=== PATIENT | female | born 1985 | race Caucasian/White ===

== ENCOUNTER 2021-02-19 02:37 | Inpatient (IN) | payer OTHER ==
[2021-02-19] MEDS ORDERED: ONDANSETRON 4 MG/2 ML VIAL IVPUSH ONE ×2 (03:01→04:04)
[2021-02-19] MEDS ORDERED: FAMOTIDINE 20 MG/50 ML IVPB 20 MG/50 ML MG IVPB ONE ×2 (03:01→04:05)
[2021-02-19] MEDS ORDERED: morphine SULFATE 4 MG/ML VIAL IVPUSH ONE (03:01)
[2021-02-19] MEDS ORDERED: SODIUM CHLORIDE 0.9% 500 ML INFUS.BAG IV ONE ×2 (03:01→04:05)
[2021-02-19] MEDS ORDERED: morphine CARPU-JECT 4 MG/1 ML DISP.SYRIN IVPUSH ONE (03:01)
[2021-02-19] MEDS ORDERED: morphine SULFATE 4 MG/ML VIAL ONE ×2 (03:06→04:05)
[2021-02-19 03:11] LABS: BASO % 1.5 % (0-2.0); EOS % 1.6 % (0-4.5); HEMATOCRIT 37.2 % (32.4-45.2); LYMPH % 50.6 % (8-40); MCHC 34.8 g/dl (32.0-36.0); MEAN CELL VOLUME 89.2 fl (80-96); MONO % 7.6 % (3.8-10.2); NEUT % 38.7 % (42.8-82.8); PLATELET COUNT 258 10^3/uL (134-434); RBC 4.18 M/mm3 (3.60-5.2); RDW 13.1 % (11.6-15.6); WHITE BLOOD COUNT 6.3 K/mm3 (4.0-10.0)
[2021-02-19 03:41] LABS: INR 0.93 (0.83-1.09); PROTHROMBIN TIME (PATIENT) 11.3 SEC (9.7-13.0)
[2021-02-19 03:43] LABS: ACTIVATED PTT 30.2 SECONDS (25.2-36.5)
[2021-02-19 03:45] LABS: CHLORIDE 107 mmol/L (98-107); SODIUM 140 mmol/L (136-145)
[2021-02-19 03:47] LABS: CALCIUM 8.7 mg/dL (8.5-10.1)
[2021-02-19 03:48] LABS: ALBUMIN 3.8 g/dl (3.4-5.0); ANION GAP 9 MMOL/L (8-16); BLOOD UREA NITROGEN 11.7 mg/dL (7-18); CO2 24 mmol/L (21-32); GLUCOSE,RANDOM 116 mg/dL (74-106); LIPASE 111 U/L (73-393)
[2021-02-19 03:51] LABS: CREATININE 0.9 mg/dL (0.55-1.3); SGOT/AST 29 U/L (15-37); SGPT/ALT 82 U/L (13-61)
[2021-02-19 03:52] LABS: BILIRUBIN,TOTAL 0.2 mg/dL (0.2-1)
[2021-02-19 03:53] LABS: TOT PROT 7.3 g/dl (6.4-8.2)
[2021-02-19 03:54] LABS: ALK PHOS 77 U/L (45-117)
[2021-02-19] MEDS ORDERED: HYDROmorphone HCL CARPU-JECT 2 MG/1 ML DISP.SYRIN IVPUSH ONE (04:03)
[2021-02-19] MEDS ORDERED: ONDANSETRON 4 MG/2 ML VIAL ONE (04:07)
[2021-02-19 04:36] LABS: LACTIC ACID 2.5 mmol/L (0.4-2.0)
[2021-02-19 05:40] LABS: PH,URINE 8.5 (5.0-8.0); URINE APPEARANCE CLEAR; URINE BILIRUBIN NEGATIVE (NEGATIVE); URINE COLOR YELLOW; URINE GLUCOSE (UA) NEGATIVE (NEGATIVE); URINE KETONE NEGATIVE (NEGATIVE); URINE LEUK ESTERASE NEGATIVE (NEGATIVE); URINE NITRITE NEGATIVE (NEGATIVE); URINE PROTEIN NEGATIVE (NEGATIVE); URINE UROBILINOGEN 0.2 mg/dL (0.2-1.0)
[2021-02-19 05:42] LABS: HCG,QUALITATIVE URINE Negative
[2021-02-19] MEDS ORDERED: PIPERACILLIN/TAZOB 3.375 GM 3.375 GM in DEXTROSE 5%-WATER - 50 ML IVPB ONE (06:12)
[2021-02-19] MEDS ORDERED: SODIUM CHLORIDE 0.9% 1000 ML INFUS.BAG IV ONE (06:20)
[2021-02-19] MEDS ORDERED: PIPERACILLIN/TAZOB 3.375 GM 3.375 GM/50 ML BAG IVPB ONE (06:32)
[2021-02-19] MEDS ORDERED: MORPHINE SULFATE 2 MG/ML VIAL IVPUSH PRN (08:29)
[2021-02-19] MEDS ORDERED: SODIUM CHLORIDE 1,000 ML IV SCH (08:30)
[2021-02-19] MEDS ORDERED: PIPERACILLIN/TAZOB 3.375 GM 3.375 GM in DEXTROSE 5%-WATER - 50 ML IVPB SCH (10:30)
[2021-02-19] MEDS ORDERED: LACTATED RINGERS SOLUTION 1,000 ML/1,000 ML INFUS.BAG IV SCH (11:15)
[2021-02-19] MEDS ORDERED: AMPICILLIN NA/SULBACTAM NA 1.5 GM in SODIUM CHLORIDE 100 ML IVPB SCH ×2 (13:42→14:01)
[2021-02-19] MEDS ORDERED: PIPERACILLIN/TAZOB 3.375 GM 3.375 GM in DEXTROSE 5%-WATER 100 ML IVPB SCH (15:00)
[2021-02-19] MEDS ORDERED: SODIUM CHLORIDE 100 ML IVPB ONE ×2 (15:02→20:10)
[2021-02-19] MEDS ORDERED: AMPICILLIN NA/SULBACTAM NA 1.5 GM VIAL ONE ×2 (15:02→20:10)
[2021-02-19] MEDS: AMPICILLIN NA/SULBACTAM NA 1.5 GM in SODIUM CHLORIDE 100 ML IVPB SCH ×2 (15:13→20:16)
[2021-02-19 15:15] LABS: BILIRUBIN,DIRECT 0.1 mg/dL (0.0-0.2)
[2021-02-19 17:31] LABS: BASO % 0.3 % (0-2.0); EOS % 0.6 % (0-4.5); HEMATOCRIT 33.3 % (32.4-45.2); HEMOGLOBIN 11.4 GM/dL (10.7-15.3); LYMPH % 30.2 % (8-40); MCHC 34.4 g/dl (32.0-36.0); MEAN CELL VOLUME 90.1 fl (80-96); MEAN PLT VOLUME 8.5 fl (7.5-11.1); MONO % 6.1 % (3.8-10.2); NEUT % 62.8 % (42.8-82.8); PLATELET COUNT 228 10^3/uL (134-434); RDW 13.5 % (11.6-15.6)
[2021-02-19] MEDS: D5-1/2NS+10 MEQ KCL - 10 MEQ/1,000 ML INFUS.BAG IV SCH (17:48)
[2021-02-19 17:53] LABS: ALBUMIN 3.1 g/dl (3.4-5.0)
[2021-02-19 17:55] LABS: BILIRUBIN,DIRECT 0.2 mg/dL (0.0-0.2)
[2021-02-19 17:58] LABS: BILIRUBIN,TOTAL 0.6 mg/dL (0.2-1); TOT PROT 5.9 g/dl (6.4-8.2)
[2021-02-20] MEDS: AMPICILLIN NA/SULBACTAM NA 1.5 GM in SODIUM CHLORIDE 100 ML IVPB SCH ×2 (04:00→09:40)
[2021-02-20] MEDS ORDERED: SODIUM CHLORIDE 100 ML IVPB ONE ×2 (04:30→09:35)
[2021-02-20] MEDS ORDERED: AMPICILLIN NA/SULBACTAM NA 1.5 GM VIAL ONE ×2 (04:30→09:35)
[2021-02-20] MEDS: D5-1/2NS+10 MEQ KCL - 10 MEQ/1,000 ML INFUS.BAG IV SCH ×2 (04:34→17:09)
[2021-02-20 09:51] LABS: BASO % 0.5 % (0-2.0); EOS % 0.9 % (0-4.5); HEMATOCRIT 32.5 % (32.4-45.2); HEMOGLOBIN 11.1 GM/dL (10.7-15.3); LYMPH % 40.5 % (8-40); MCHC 34.2 g/dl (32.0-36.0); MEAN CELL VOLUME 90.8 fl (80-96); MEAN PLT VOLUME 8.5 fl (7.5-11.1); MONO % 7.3 % (3.8-10.2); NEUT % 50.8 % (42.8-82.8); PLATELET COUNT 223 10^3/uL (134-434); RBC 3.58 M/mm3 (3.60-5.2); RDW 13.4 % (11.6-15.6); WHITE BLOOD COUNT 4.6 K/mm3 (4.0-10.0)
[2021-02-20 10:22] LABS: ALBUMIN 3.1 g/dl (3.4-5.0); BLOOD UREA NITROGEN 3.3 mg/dL (7-18); CALCIUM 7.6 mg/dL (8.5-10.1); MAGNESIUM 2.2 mg/dL (1.8-2.4)
[2021-02-20 10:25] LABS: CREATININE 0.7 mg/dL (0.55-1.3); PHOSPHOROUS 2.6 mg/dL (2.5-4.9)
[2021-02-20 10:27] LABS: BILIRUBIN,TOTAL 0.6 mg/dL (0.2-1); TOT PROT 5.9 g/dl (6.4-8.2)
[2021-02-20] MEDS ORDERED: PROPOFOL 20 ML ONE (11:39)
[2021-02-20] MEDS ORDERED: fentaNYL CITRATE 250 MCG/5 ML VIAL ONE (11:39)
[2021-02-20] MEDS ORDERED: MIDAZOLAM HCL 2 MG/2 ML SINGLE DOSE VIAL ONE (11:40)
[2021-02-20] MEDS ORDERED: ROCURONIUM BROMIDE 50 MG/5 ML SYRINGE ONE (11:40)
[2021-02-20] MEDS ORDERED: BUPIVACAINE HCL/PF 0.5% (5MG/ML) 10 ML VIAL ONE (11:41)
[2021-02-20] MEDS ORDERED: BUPIVACAINE HCL/PF 0.5% (5MG/ML) 10 ML VIAL IJ ONE ×2 (12:54→13:54)
[2021-02-20] MEDS ORDERED: DEXAMETHASONE SOD PHOSPHATE 4 MG/1 ML VIAL ONE (13:01)
[2021-02-20] MEDS ORDERED: KETOROLAC TROMETHAMINE 30 MG/1 ML VIAL ONE (13:01)
[2021-02-20] MEDS ORDERED: GLYCOPYRROLATE 0.2 MG/1 ML VIAL ONE (13:01)
[2021-02-20] MEDS ORDERED: NEOSTIGMINE METHYLSULFATE 0.5 MG/ML - 10 ML MDV ONE (13:04)
[2021-02-20] MEDS ORDERED: ONDANSETRON 4 MG/2 ML VIAL IVPUSH PRN ×3 (14:23→15:10)
[2021-02-20] MEDS ORDERED: ACETAMINOPHEN 1000 MG/100 ML VIAL (NON FORMULARY) IVPB ONE ×3 (14:23→15:19)
[2021-02-20] MEDS ORDERED: ACETAMINOPHEN INJECTION 100 ML IVPB ONE (14:25)
[2021-02-20] MEDS ORDERED: LACTATED RINGERS SOLUTION 1,000 ML IV SCH ×2 (14:30→14:42)
[2021-02-20] MEDS ORDERED: oxyCODONE HCL 5 MG TABLET PO PRN (14:33)
[2021-02-20] MEDS ORDERED: ACETAMINOPHEN 500 MG TABLET (FP) PO PRN (14:42)
[2021-02-20] MEDS ORDERED: KETOROLAC TROMETHAMINE 15 MG/ML VIAL IVPUSH PRN (14:42)
[2021-02-20 16:21] VITALS: BMI 31.8
[2021-02-20] MEDS: oxyCODONE HCL 5 MG TABLET PO PRN (20:12)
[2021-02-21] MEDS: D5-1/2NS+10 MEQ KCL - 10 MEQ/1,000 ML INFUS.BAG IV SCH ×2 (02:50→14:31)
[2021-02-21 09:39] LABS: BASO % 0.3 % (0-2.0); HEMATOCRIT 34.8 % (32.4-45.2); LYMPH % 19.9 % (8-40); MCH 31.2 pg (25.7-33.7); MCHC 34.6 g/dl (32.0-36.0); MEAN CELL VOLUME 90.4 fl (80-96); MEAN PLT VOLUME 9.5 fl (7.5-11.1); MONO % 6.1 % (3.8-10.2); NEUT % 73.7 % (42.8-82.8); PLATELET COUNT 268 10^3/uL (134-434); RBC 3.85 M/mm3 (3.60-5.2); RDW 13.3 % (11.6-15.6); WHITE BLOOD COUNT 8.9 K/mm3 (4.0-10.0)
[2021-02-21 09:56] LABS: ALBUMIN 3.4 g/dl (3.4-5.0); BLOOD UREA NITROGEN 3.1 mg/dL (7-18); CALCIUM 8.3 mg/dL (8.5-10.1); MAGNESIUM 2.2 mg/dL (1.8-2.4)
[2021-02-21 09:59] LABS: CREATININE 0.7 mg/dL (0.55-1.3)
[2021-02-21 10:00] LABS: PHOSPHOROUS 3.4 mg/dL (2.5-4.9)
[2021-02-21 10:01] LABS: BILIRUBIN,TOTAL 0.7 mg/dL (0.2-1); TOT PROT 6.4 g/dl (6.4-8.2)
[2021-02-21] MEDS: oxyCODONE HCL 5 MG TABLET PO PRN (11:36)
[2021-02-21 15:46] VITALS: BP 111/69; PULSE 59; TEMP 97.8
== END 2021-02-21 16:28 | disposition home or self-care (01) | DRG 263 ==
LOC: JER 02:37 → JERBED 06:20 → J8W 11:42
PROVIDERS: ADMIT Internal Medicine; ATTEND Internal Medicine
PROC: 0FT44ZZ Resection of Gallbladder, Percutaneous Endoscopic Approach (ICD-10-PCS; principal; 2021-02-20 10:30)
DX: K80.00 Calculus of gallbladder with acute cholecystitis without obstruction (principal); K83.8 Other specified diseases of biliary tract; R74.01 Elevation of levels of liver transaminase levels
CPT/HCPCS: 36415; 71045-TC-FY; 74177-TC; 76705-TC; 80053; 80076; 81003; 82550; 83605; 83690; 83735; 84100; 84484; 84703; 85025; 85610; 85730; 86850; 86900; 86901; 87086; 88304-TC; 93005; 93010; 94010; 94760; 99285-25; C9803; J0131; Q9967; U0003; U0005

== ENCOUNTER 2022-01-10 21:30 | Inpatient (IN) | payer OTHER ==
[2022-01-10] MEDS ORDERED: ELECTROLYTE-148 SOLN 1,000 ML IV SCH (23:45)
[2022-01-11 00:25] LABS: BASO % 0.4 % (0-2.0); EOS % 0.5 % (0-4.5); HEMATOCRIT 32.6 % (32.4-45.2); HEMOGLOBIN 11.4 GM/dL (10.7-15.3); LYMPH % 27.9 % (8-40); MCH 33.1 pg (25.7-33.7); MCHC 35.1 g/dl (32.0-36.0); MEAN CELL VOLUME 94.2 fl (80-96); MEAN PLT VOLUME 8.8 fl (7.5-11.1); MONO % 6.6 % (3.8-10.2); NEUT % 64.6 % (42.8-82.8); PLATELET COUNT 154 10^3/uL (134-434); RBC 3.46 M/mm3 (3.60-5.2); RDW 13.6 % (11.6-15.6)
[2022-01-11 00:36] LABS: INR 0.88 (0.83-1.09); PROTHROMBIN TIME (PATIENT) 10.1 SEC (9.7-13.0)
[2022-01-11 00:39] LABS: ACTIVATED PTT 27.8 SECONDS (25.2-36.5)
[2022-01-11 00:43] LABS: CALCIUM 8.6 mg/dL (8.5-10.1)
[2022-01-11 00:44] LABS: ALBUMIN 2.6 g/dl (3.4-5.0)
[2022-01-11 00:47] LABS: CREATININE 0.5 mg/dL (0.55-1.3)
[2022-01-11 00:48] LABS: BILIRUBIN,TOTAL 0.2 mg/dL (0.2-1)
[2022-01-11 00:49] LABS: TOT PROT 6.1 g/dl (6.4-8.2)
[2022-01-11 01:15] VITALS: BMI 29.9
[2022-01-11] MEDS ORDERED: DEXTROSE 5%-LACTATED RINGERS 1,000 ML IV SCH (03:30)
[2022-01-11] MEDS ORDERED: OXYTOCIN 30 UNITS in 0.9% NS 30 UNIT/500 ML INFUS.BAG IVPB SCH (03:30)
[2022-01-11] MEDS ORDERED: FENTANYL/BUPIVACAINE/NS/PF - PCEA - 50 ML DISP.SYRIN EP ONE ×3 (08:55→18:48)
[2022-01-11] MEDS: ELECTROLYTE-148 SOLN 1,000 ML IV SCH ×2 (09:15→13:15)
[2022-01-11] MEDS: FENTANYL/BUPIVACAINE/NS/PF - PCEA - 50 ML DISP.SYRIN EP SCH ×3 (09:45→18:45)
[2022-01-11] MEDS ORDERED: NALOXONE HCL 0.4 MG/ML VIAL IVPUSH PRN ×2 (11:29→13:10)
[2022-01-11 13:13] LABS: POC NITRAZINE POS
[2022-01-11] MEDS ORDERED: FENTANYL/BUPIVACAINE/NS/PF - PCEA - 50 ML DISP.SYRIN EP SCH (13:15)
[2022-01-11] MEDS ORDERED: OXYTOCIN 20 UNITS in 0.9% NS 20 UNIT/1,000 ML INFUS.BAG IV ONE (20:09)
[2022-01-11] MEDS ORDERED: LIDOCAINE HCL 1% PRESERVATIVE FREE - 30ML VIAL ONE (20:09)
[2022-01-11] MEDS ORDERED: BENZOCAINE 28 GM HEMORRHOIDAL OINTMENT TP PRN (20:38)
[2022-01-11] MEDS ORDERED: ACETAMINOPHEN 325 MG TABLET (FP) PO PRN (20:38)
[2022-01-11] MEDS ORDERED: WITCH HAZEL 50% (TUCKS) 40 PAD/JAR PAD TP PRN (20:38)
[2022-01-11] MEDS ORDERED: BISACODYL 10 MG SUPP.RECT RC PRN (20:38)
[2022-01-11] MEDS ORDERED: BENZOCAINE 20% 57 GM BOTTLE TP PRN (20:38)
[2022-01-11] MEDS ORDERED: IBUPROFEN 600 MG TABLET (FP) PO PRN (20:38)
[2022-01-11] MEDS ORDERED: METHYLERGONOVINE MALEATE 0.2 MG/1 ML AMP IM PRN (20:38)
[2022-01-11] MEDS ORDERED: OXYTOCIN 20 UNITS in 0.9% NS 20 UNIT/1,000 ML INFUS.BAG IV SCH (20:45)
[2022-01-12 07:55] LABS: BASO % 0.2 % (0-2.0); EOS % 0.1 % (0-4.5); HEMATOCRIT 27.4 % (32.4-45.2); HEMOGLOBIN 9.6 GM/dL (10.7-15.3); LYMPH % 11.8 % (8-40); MCHC 34.8 g/dl (32.0-36.0); MEAN CELL VOLUME 94.7 fl (80-96); MEAN PLT VOLUME 8.8 fl (7.5-11.1); MONO % 7.1 % (3.8-10.2); NEUT % 80.8 % (42.8-82.8); PLATELET COUNT 126 10^3/uL (134-434); RDW 13.3 % (11.6-15.6); WHITE BLOOD COUNT 13.4 K/mm3 (4.0-10.0)
[2022-01-12] MEDS ORDERED: DIPHTH,PERTUSS(ACELL),TET 0.5 ML DISP.SYRIN IM ONE (10:00)
[2022-01-12] MEDS: PRENATAL VITAMINS W/ FOLIC ACID TABLET (FP) PO SCH (10:07)
[2022-01-12] MEDS ORDERED: SENNOSIDES/DOCUSATE COMBO (SENNA PLUS) TABLET (UD) PO PRN (22:00)
[2022-01-13 08:41] VITALS: BP 89/62; PULSE 78; TEMP 97.8
[2022-01-13] MEDS: PRENATAL VITAMINS W/ FOLIC ACID TABLET (FP) PO SCH (09:47)
== END 2022-01-13 12:05 | disposition home or self-care (01) | DRG 560 ==
LOC: JDEL 21:30 → JLDR 23:25 → J3W 01-11 22:00
PROVIDERS: ADMIT Student in an Organized Health Care Education/Training Program; ATTEND Student in an Organized Health Care Education/Training Program
PROC: 0HQ9XZZ Repair Perineum Skin, External Approach (ICD-10-PCS; principal; 2022-01-11)
PROC: 10E0XZZ Delivery of Products of Conception, External Approach (ICD-10-PCS; 2022-01-11)
PROC: 10907ZC Drainage of Amniotic Fluid, Therapeutic from Products of Conception, Via Natural or Artificial Opening (ICD-10-PCS; 2022-01-11)
DX: O48.0 Post-term pregnancy (principal); O70.0 First degree perineal laceration during delivery; O77.0 Labor and delivery complicated by meconium in amniotic fluid; Z37.0 Single live birth; Z3A.41 41 weeks gestation of pregnancy
CPT/HCPCS: 36415; 59025; 59409; 80053; 83986-QW; 85025; 85610; 85730; 86780; 86850; 86900; 86901; 90715; C9803-CS; U0003; U0005